=== PATIENT | female | born 1985 | race Caucasian/White ===

== ENCOUNTER 2017-10-05 10:10 | Day surgery (SDC) | payer BC ==
--- NOTE | 2017-10-05 01:17 | HP ---
CC: Dr. Guillermo Ramon * ADMITTING HISTORY AND PHYSICAL: DATE OF ADMISSION: 10/06/17 ADMITTING DIAGNOSES: 1. Calculus, right proximal ureter. 2. Right hydronephrosis. PLANNED PROCEDURE: Right ureteroscopy, possible laser and stent insertion ( possibly to be followed by shockwave lithotripsy in the near future). SURGEON: Franco Terrell MD HISTORY OF PRESENT ILLNESS: Jimena Wayne is a 32-year-old lady who had initially been evaluated at the emergency room at [facility] for right flank pain. A CT scan had revealed 8 mm calculus in the right proximal ureter with mild right hydronephrosis. I discussed options of management with her including signs to continue conservative management because of the size and proximal location of the calculus. She is now being brought in for right ureteroscopy, possible laser and stent insertion. Because of the proximal location of the calculus, I have explained to her that the calculus may migrate into the kidney and she may require shockwave lithotripsy at a later date. PAST MEDICAL HISTORY: Significant for: 1. Hyperkalemia (no definite diagnosis, currently being worked up by mammography technician). 2. History of kidney stones. PAST SURGICAL HISTORY: Significant for: 1. x2. 2. Laparoscopy. MEDICATIONS: On admission: 1. Hydrochlorothiazide 50 mg daily. 2. Flomax 0.4 mg. 3. Ibuprofen p.r.n. ALLERGIES: No known drug allergies. FAMILY HISTORY: There is a strong family history of kidney stones in the form of her father, mother and brother. SMOKING HISTORY: She is a nonsmoker. REVIEW OF SYSTEMS: She is otherwise in excellent health. There is no history of diabetes mellitus or any other major systemic illness. PHYSICAL EXAMINATION GENERAL: Reveals a pleasant mildly uncomfortable young lady. VITAL SIGNS: Blood pressure is 136/84, pulse 104 per minute and regular, temperature 96.4, oxygen saturation 98% on room air. LUNGS: Clear bilaterally. CARDIOVASCULAR EXAM: Regular rate and rhythm. S1, S2. ABDOMEN: Soft with mild right flank tenderness. IMPRESSION: A 32-year-old lady with a partially obstructing calculus in the right proximal ureter. PLAN: Plan is for right ureteroscopy, possible laser and stent insertion. [id number]/[facility] #: [id number] [facility]
[2017-10-05] MEDS ORDERED: cefTRIAXone(*) 2 GM ADDV.VIAL IVPB ONE (10:18)
[2017-10-05] MEDS ORDERED: Gentamicin ADULT (*) 160 MG in NS 0.9% 100 ML* 100 ML IVPB ONE (10:30)
[2017-10-05 11:19] LABS: EGFR Non-African American 80.8 (>60)
[2017-10-05] MEDS ORDERED: Iohexol 180 (CONTRAST) 10 ML SDV IV ONE (12:09)
[2017-10-05] MEDS ORDERED: fentaNYL* 50 MCG/ML 2 ML VIAL (100 MCG VIAL) ONE (12:19)
[2017-10-05] MEDS ORDERED: Midazolam* 1 MG/ML 2 ML VIAL (2 MG) ONE (12:19)
[2017-10-05] MEDS ORDERED: Chloroprocaine 2%* 20 ML VIAL ONE (12:20)
[2017-10-05] MEDS ORDERED: Metoclopramide IV* 5 MG/ML 2 ML VIAL ONE (12:20)
[2017-10-05] MEDS ORDERED: Sodium Citrate/Citric Acid* 15 ML UDC ONE (12:24)
--- NOTE | 2017-10-05 14:09 | RAD ---
INDICATION: Right ureteroscopy COMPARISON: None FINDINGS: 6 seconds of fluoroscopy were provided for the urology department. Fluoroscopic spot imaging of the abdomen were obtained for operative control and show right ureteroscopy with stent placement . CPT II Codes: G9500 (fluoro time doc)
[2017-10-05 15:12] VITALS: BP 128/83
--- NOTE | 2017-10-05 15:34 | RAD ---
HISTORY: Post stent insertion COMPARISONS: October 04, 2017 VIEWS: Frontal views of the abdomen. FINDINGS: BOWEL: There is a nonobstructive bowel gas pattern. CALCULI: There is a 0.5 cm calculus overlying the right renal parenchymal shadow, stable. A right ureteral stent is noted. BONES AND SOFT TISSUES: There are no osseous abnormalities. OTHER FINDINGS: The lung bases are clear. There is no subphrenic gas. IMPRESSION: STABLE RIGHT NEPHROLITHIASIS. RIGHT URETERAL STENT.
--- NOTE | 2017-10-06 16:09 | OP ---
DATE OF OPERATION: 10/05/17 - [facility] DATE OF : 85 SURGEON: Franco Terrell MD ANESTHESIOLOGIST: Dr. Cho. ANESTHESIA: Spinal. PRE-OP DIAGNOSES: 1. Right hydronephrosis. 2. Obstructing calculus, right proximal ureter. POST-OP DIAGNOSES: 1. Right hydronephrosis. 2. Obstructing calculus, right proximal ureter. OPERATIVE PROCEDURE: Cystoscopy, right retrograde pyelogram, right ureteroscopy and right ureteral calculus manipulation, and right stent insertion. COMPLICATIONS: None. INDICATIONS: Jimena Wayne is a 32-year-old lady who has had right flank pain and nausea secondary to a calculus that was initially noted on a CT scan done at [facility]. This was measured as a 8 mm calculus in the proximal right ureter. She is being brought in for right stent insertion and because of the proximal location of the calculus will likely require lithotripsy in the near future. OPERATIVE FINDINGS: Obstructing calculus, right proximal ureter with fairly narrow ureter and right hydronephrosis. POSTOPERATIVE CONDITION: Stable. STENTS USED: 6-Samoan stent, right ureter. DESCRIPTION OF PROCEDURE: After induction of spinal anesthesia, the patient was placed in dorsal lithotomy position, sequential compression devices were in place and functioning. Initial cystoscopy revealed normally located right and left ureteral orifices with clear efflux noted from the left orifice. There was not much efflux noted from the right orifice suggesting that her obstruction had worsened since she had been evaluated in the office yesterday. A guidewire was introduced into the right ureter. Retrograde pyelogram revealed right hydronephrosis. A 6-Samoan semi-rigid ureteroscope was introduced and advanced into the distal right ureter. The ureter was clearly narrow and the ureteroscope was advanced 4 to 5 cm but because of how narrow the ureter was and the fact that the calculus was fairly proximal close to the ureteropelvic junction, I did not think it would be feasible to reach the calculus without causing any trauma to the ureter. At this point, I elected to manipulate the calculus proximally with an open-ended catheter and once this was done, a 6-Samoan stent was introduced and positioned under fluoroscopy with good proximal and distal positioning obtained. The bladder was emptied. The patient tolerated the procedure satisfactorily and was transferred back to recovery area in stable condition. [id number]/[facility] #: [id number] [facility]
== END 2017-10-05 15:16 | disposition home or self-care (01) ==
LOC: OR 10:10
PROVIDERS: ATTEND Urology
DX: N13.2 Hydronephrosis with renal and ureteral calculous obstruction (principal); E87.5 Hyperkalemia; Z87.442 Personal history of urinary calculi
CPT/HCPCS: 36415; 74018; 74420; 80048; A9270-GY; C1876; J0696; J1580; J2250; J2400; J2765; J3010

== ENCOUNTER 2017-10-23 06:03 | Day surgery (SDC) | payer BC ==
[~2017-10-23 06:03] MED LIST: Buffered Lidocaine 0.9% SYRIN* 5 ML/SYR SYRINGE INTRADERM ONE
[2017-10-23] MEDS ORDERED: cefTRIAXone(*) 2 GM ADDV.VIAL IVPB ONE (06:12)
[2017-10-23] MEDS ORDERED: Midazolam* 1 MG/ML 2 ML VIAL (2 MG) ONE (07:07)
[2017-10-23] MEDS ORDERED: fentaNYL* 50 MCG/ML 2 ML VIAL (100 MCG VIAL) ONE (07:07)
[2017-10-23] MEDS ORDERED: PROCHLORPERAZINE INJ 5 MG/ML 2 ML VIAL IV PRN (07:49)
[2017-10-23] MEDS ORDERED: Acetaminophen TAB* 325 MG PO PRN (07:49)
[2017-10-23] MEDS ORDERED: Ondansetron ODT TAB* 4 MG PO PRN (07:49)
[2017-10-23] MEDS ORDERED: Naloxone* 0.4 MG/ML 1 ML VIAL IV PRN (07:49)
[2017-10-23] MEDS ORDERED: DiMENhydriNATE IV* 50 MG/ML VIAL IV PUSH PRN (07:49)
[2017-10-23] MEDS ORDERED: fentaNYL* 50 MCG/ML 2 ML VIAL (100 MCG VIAL) IV PRN (07:49)
[2017-10-23] MEDS ORDERED: HYDROcodone/ACETAMIN 5-325 MG* 1 TAB PO PRN (07:49)
[2017-10-23] MEDS ORDERED: Propofol* 10 MG/ML 20 ML BTL IV PUSH ONE (07:51)
[2017-10-23] MEDS ORDERED: Dexamethasone IV* 4 MG/ML 1 ML (4 MG) ONE (07:51)
[2017-10-23] MEDS ORDERED: Famotidine IV* 10 MG/ML 2 ML (20 mg) ONE (07:51)
--- NOTE | 2017-10-23 08:23 | RAD ---
Indication: Shock wave lithotripsy. [employer] film of the abdomen demonstrates right ureteral stent in place. There is stool in the right colon. No dilated loops of bowel are noted. Bowel gas pattern is unremarkable. Calcification is noted overlying the right L3 transverse process. IMPRESSION: The calculus is now overlying the right L3 transverse process is relatively in the right ureter.
[2017-10-23 09:27] VITALS: BP 104/74
--- NOTE | 2017-10-23 23:10 | OP ---
DATE OF OPERATION: 10/23/17 - [facility] DATE OF : 85 SURGEON: Franco Terrell MD ANESTHESIOLOGIST: Gary Ly MD ANESTHESIA: General. PRE-OP DIAGNOSIS: Right ureteral-renal calculus. POST-OP DIAGNOSIS: Calculus, right ureter. OPERATIVE PROCEDURE: Shock wave lithotripsy of calculus, right ureter. INDICATIONS: Jimena Wayne is a 32-year-old lady who had been evaluated for an obstructing calculus of the right proximal ureter. She had undergone right stent insertion with manipulation of the calculus proximally and is now being brought in for lithotripsy. COMPLICATIONS: None. POSTOPERATIVE CONDITION: Stable. DESCRIPTION OF PROCEDURE: After induction of general anesthesia, the patient was placed on the lithotripsy table in the supine position. The calculus which had been manipulated into the kidney was now back in the proximal right ureter adjacent to the stent. After adequate localization, shock wave lithotripsy was commenced at a rate of 60 shocks per minute. Periodic imaging revealed good localization and a total of 1800 shocks were delivered. The patient tolerated the procedure satisfactorily and was transferred back to the recovery area in stable condition. [id number]/[facility] #: [id number] MTDD
== END 2017-10-23 09:38 | disposition home or self-care (01) ==
LOC: OR 06:03
PROVIDERS: ATTEND Urology
DX: N20.1 Calculus of ureter (principal); N13.30 Unspecified hydronephrosis
CPT/HCPCS: 36415; 74018; 81025; 84132; J0696; J1100; J2250; J2704; J3010

== ENCOUNTER 2018-01-09 15:09 | Observation (INO) | payer BC ==
--- NOTE | 2018-01-09 12:53 | HP ---
CC: Dr. Guillermo Ramon, [facility] DATE OF ADMISSION: 01/09/2018. AGE: 32-year-old female. ADMITTING DIAGNOSIS: Obstructing calculus right ureter. PLANNED PROCEDURE: Right stent insertion, possible right ureteroscopy (likely to be followed in the near future by lithotripsy. SURGEON: Dr. Terrell. HISTORY OF PRESENT ILLNESS: Jimena Wayne is a 32-year-old lady who has had a history of right renal calculi. She has previously undergone right stent insertion and lithotripsy in October of 2017 with only partial fragmentation of observed. At that time, she had an 8 mm calculus. My plan was to consider bringing her back in for repeat lithotripsy at some point which had been put off because she had a recent right ankle sprain. She started having severe right flank pain on January 06. An ultrasound done in my office earlier today reveals a 6 mm obstructing calculus in the proximal right ureter with evidence of perinephric stranding and absent right ureteral jets suggesting a complete obstruction. She is now being brought in for urgent right stent insertion, possible ureteroscopy and will likely require lithotripsy in the near future. PAST MEDICAL HISTORY: 1. Renal calculi. 2. Hypertension. MEDICATIONS ON ADMISSION: 1. Hydrochlorothiazide 50 mg a day. 2. Ibuprofen prn. ALLERGIES: No known drug allergies. FAMILY HISTORY: There is a strong family history of kidney stones in the form of mother and several siblings. REVIEW OF SYSTEMS: There is no history of diabetes mellitus or any other major systemic illness. She did have a recent right ankle sprain and is still in a walking boot. This did not require any surgery. PHYSICAL EXAMINATION GENERAL: Pleasant, healthy-appearing young lady. VITAL SIGNS: Blood pressure 140/90, pulse 68 per minute and regular, temperature 96.3, oxygen saturation 98 percent on room air. CARDIOVASCULAR: Regular rate and rhythm. S1, S2. LUNGS: Clear bilaterally. ABDOMEN: Soft with mild right flank tenderness. In the right lower extremity she had a walking boot. PLAN: I reviewed the ultrasound and had a detailed discussion with Jimena. The plan is for urgent right stent insertion, possible ureteroscopy (likely to be followed by lithotripsy in the near future). [id number]/[facility] #: [id number] [facility]
[2018-01-09] MEDS ORDERED: cefTRIAXone(*) 2 GM ADDV.VIAL IVPB ONE (15:51)
[2018-01-09] MEDS ORDERED: Gentamicin ADULT (*) 160 MG in NS 0.9% 100 ML* 100 ML IVPB ONE (16:00)
[2018-01-09] MEDS ORDERED: Iohexol 180 (CONTRAST) 10 ML SDV IV ONE (16:50)
[2018-01-09] MEDS ORDERED: Famotidine IV* 10 MG/ML 2 ML (20 mg) IV ONE (17:05)
[2018-01-09] MEDS ORDERED: Dexamethasone IV* 4 MG/ML 1 ML (4 MG) IV SLOW PU ONE (17:05)
[2018-01-09] MEDS ORDERED: Sodium Citrate/Citric Acid* 15 ML UDC PO ONE (17:06)
[2018-01-09] MEDS ORDERED: fentaNYL* 50 MCG/ML 2 ML VIAL (100 MCG VIAL) ONE (17:11)
[2018-01-09] MEDS ORDERED: Midazolam* 1 MG/ML 2 ML VIAL (2 MG) ONE (17:11)
[2018-01-09] MEDS ORDERED: Dexamethasone IV* 4 MG/ML 1 ML (4 MG) ONE (17:12)
[2018-01-09] MEDS ORDERED: Famotidine IV* 10 MG/ML 2 ML (20 mg) ONE (17:12)
[2018-01-09] MEDS ORDERED: Propofol* 10 MG/ML 20 ML BTL IV PUSH ONE (17:51)
[2018-01-09] MEDS ORDERED: Ondansetron INJ* 2 MG/ML VIAL ONE (17:51)
[2018-01-09] MEDS ORDERED: Naloxone* 0.4 MG/ML 1 ML VIAL IV PRN (18:11)
[2018-01-09] MEDS ORDERED: fentaNYL* 50 MCG/ML 2 ML VIAL (100 MCG VIAL) IV PRN (18:11)
[2018-01-09] MEDS ORDERED: DiMENhydriNATE IV* 50 MG/ML VIAL IV PUSH PRN (18:11)
[2018-01-09] MEDS ORDERED: LORazepam INJ* 2 MG/ML 1 ML VIAL IV PUSH ONE (19:28)
[2018-01-09] MEDS ORDERED: NS 0.9% 1000 ML* 1,000 ML IV SCH (19:45)
[2018-01-09] MEDS ORDERED: Acetaminophen TAB* 325 MG PO PRN (19:46)
[2018-01-09 21:35] LABS: ABS Basophils 0 10^3/ul (0-0.2); ABS Eosinophils 0 10^3/ul (0-0.6); ABS Lymphocytes 0.8 10^3/ul (1.0-4.8); ABS Monocytes 0.2 10^3/ul (0-0.8); ABS Neutrophils 8.7 10^3/ul (1.5-7.7); ABS Nucleated RBC 0 10^3/ul; Eosinophil % 0.1 % (0-6); Hematocrit 39 % (35-47); Hemoglobin 13.1 g/dl (12.0-16.0); Lymphocyte % 7.8 % (25-47); Mean Corpuscular HGB Conc 34 g/dl (31-36); Mean Corpuscular Hemoglobin 30 pg (27-31); Mean Corpuscular Volume 88 fL (80-97); Mean Platelet Volume 7.4 um3 (7.4-10.4); Nucleated Red Blood Cells % 0; Platelet Count 280 10^3/ul (150-450); Red Blood Count 4.39 10^6/ul (4.00-5.40); Red Cell Distribution Width 14 % (10.5-15); White Blood Count 9.6 10^3/ul (3.5-10.8)
[2018-01-09 21:37] LABS: Urine Appearance Clear; Urine Blood 3+ (Negative); Urine Color Straw; Urine Ketones Negative (Negative); Urine Protein 1+(30 mg/dL) (Negative); Urine Red Blood Cell 2+(6-10/hpf) (Absent); Urine Specific Gravity 1.002 (1.010-1.030); Urine Urobilinogen Negative (Negative); Urine White Blood Cell Trace(0-5/hpf) (Absent)
[2018-01-09 21:52] LABS: EGFR Non-African American 83.1 (>60)
[2018-01-09] MEDS ORDERED: Potassium Chlor TAB* 20 MEQ TAB.ER PO ONE (22:01)
--- NOTE | 2018-01-09 22:16 | HP ---
CC: Dr. Ramon; Dr. Cho * HISTORY AND PHYSICAL: DATE OF ADMISSION: 01/09/18. PRIMARY CARE PROVIDER: Dr. Ramon. ATTENDING PHYSICIAN WHILE IN THE HOSPITAL: Isaak Sandoval M.D.* (report dictated by Shelly Bonilla NP). REQUESTING PHYSICIAN FOR ADMISSION: Dr. Cho. CONSULTING UROLOGIST: Dr. Terrell. CHIEF COMPLAINT: 1. Obstructing nephrolithiasis. 2. Rigidity. HISTORY OF PRESENT ILLNESS: I am referring Dr. Terrell's H and P dictated earlier today for details of chart. Mrs. Wayne is a 32-year-old female patient. She has a history of renal calculi , history of hypertension, and a history of hyperkalemia. She carries a history of kidney stones. She had undergone right stent insertion and lithotripsy in October 2017. She started having pain in the right side of her flank on 01/06/18. Ultrasound was done in the office today which showed a 6-mm obstructing stone in the right ureter with evidence of perinephric stranding and absence of right ureteral jets. The patient was taken urgently to the OR today, underwent procedure, and did tolerate the procedure well. Unfortunately postprocedure, the patient started developing in the PACU, episodes of rigidity and tetany. She was having issues with her jaw clenching down. She was coherent on this episode. She has had about 4 episodes, longest one lasting 10 minutes. She did not receive any Reglan and she did not receive any Compazine, but she did receive fentanyl, propofol, Versed, and sevoflurane. She received general anesthetic previously with no complication, but because of these episodes, we were asked to evaluate. She has not had any bowel or bladder incontinence associated with this and no loss of consciousness. She is able to make an eye contact, follow commands during this, and she is able to order the word "yes or no," but she cannot speak a full sentence because her jaw is clenched. Because of these episodes, we were asked to evaluate in consult. PAST MEDICAL HISTORY: Significant for: 1. Hypertension. 2. Nephrolithiasis. 3. Hyperkalemia. PAST SURGICAL HISTORY: 1. She has had . 2. Exploratory laparotomy. 3. Multiple ureteral stentings. 4. She has had a laparoscopic surgery for an ovarian cyst. MEDICATIONS: Home meds include: 1. Ibuprofen 800 mg every 8 hours as needed. 2. Hydrochlorothiazide 50 mg p.o. daily. ALLERGIES: Her allergies to medications include LATEX and no known drug allergies. FAMILY HISTORY: She said it is of her knowledge, her mom and dad are previously healthy. There was no reports of medical problems with them. SOCIAL HISTORY: She does not smoke. She does not drink. She denied recreational drugs. Her surrogate decision maker is her . REVIEW OF SYSTEMS: Again, she denied any recent fevers. No fevers, no chills, no shortness of breath. She denied any dysuria. No frequency. No seizure. No loss of consciousness with this episode. There is no abdominal pain. No chest pain. No shortness of breath. No ear discharge. No rhinorrhea or any sore throat. Review of 14 systems was completed, all others negative. PHYSICAL EXAMINATION GENERAL: At this time, Ms. Wayne is a 32-year-old female patient. She is sitting in the PACU bed. She did not appear to be in any acute distress. VITAL SIGNS: Blood pressure 120/95, pulse 94, respirations were 18, O2 sat 100% , temperature 97.7. HEENT: Head: Atraumatic. Eyes: EOMs are intact. Sclerae anicteric and not pale. Throat: Oral mucosa appears moist. No oropharyngeal erythema. NECK: Supple. LUNGS: Clear to auscultation bilaterally. No wheezes, rales or rhonchi. HEART: Heart sounds S1, S2. She had a regular rate and rhythm. No murmurs, rubs or gallops. ABDOMEN: Soft, flat, nontender. Her bowel sounds were present. EXTREMITIES: Pulses were 2+ throughout. She is moving all 4 extremities. NEUROLOGIC: When she was not on one of these episodes, she is awake, alert. She is oriented x3. Her speech is clear. Her tongue is midline. She had no gross focal deficits. When she does have the episode, she becomes rigid in her entire body. Her jaw is clenching. She can maintain eye contact, and if you ask her to look at you, she will and she can answer "yes or no" to questions, but she cannot speak a full sentence. SKIN: Intact. DIAGNOSTIC STUDIES/LAB DATA: I have chemistries from 10/05/17. CMP: Sodium of 136, potassium is 3.5, chloride of 103, bicarb 22, BUN 19, creatinine 0.82. She again had an outpatient ultrasound and report according to Dr. Terrell showed 6 mm obstructing calculus in the proximal right ureter with evidence of perinephric stranding and absent right ureteral jets. Old medical records were reviewed. ASSESSMENT AND PLAN: Mrs. Wayne is a 32-year-old female patient with a known history of kidney stones coming into our hospital today with Dr. Terrell for right ureteral stent. Postoperatively, he noted to have episodes of tetany, we were asked to evaluate. She will be admitted under observation status for: 1. Status post right ureteral stent with perinephric stranding on imaging from Dr. Terrell's read, I will place her empirically on Rocephin with some blood cultures, and I have also sent some blood cultures including lactic as well and we will continue to follow. 2. Episodes of tetany: These episodes she is having where she is rigid, they almost look like she is having extrapyramidal side effects and possible tardive dyskinesia. I did touch base quickly with Neurology, felt it to be reaction to the patient's anesthetics. So, I will certainly go ahead and give her some Ativan, which I have done now. She has tolerated it well. I will hydrate her. I will check a CMP and CBC. If they continue to happen, I will get a formal consult from Neurology, possible CT imaging of her brain, possible EEG. We are going to wait as she seems to be stable currently, she has not had any more episodes since the Ativan. 3. Hypertension. Continue meds as prescribed. 4. Renal calculi. We will follow with her urologist. 5. Hyperkalemia. Continue with her current medical regimen. We are checking her CMP now. 6. Code status is full code. 7. DVT prophylaxis. She will be placed on SCDs. 8. Fluids, electrolytes, and nutrition. Clear liquid diet, going to regular diet. TIME SPENT: Time spent on the consult was 60 minutes, greater than half the time was spent [id number] with the patient obtaining my history and physical, other half time was spent going over the plan of care with the patient and implementing the plan of care. I did discuss the plan of care with my attending, Dr. Sandoval; he is in agreement. SHELLY BONILLA NP [id number]/[facility] #: [id number] [facility]
--- NOTE | 2018-01-09 22:29 | RAD ---
CPT II Codes: G9500 INDICATION: Right-sided hydronephrosis TECHNIQUE: Intraoperative fluoroscopy was provided during retrograde pyelography and right ureteral stent placement. FINDINGS: 9 spot films depict retrograde pyelogram demonstrating moderate right-sided hydronephrosis followed by anatomic deployment of a right ureteral stent. Fluoroscopy time: 10 seconds IMPRESSION: As above.
--- NOTE | 2018-01-09 22:59 | RAD ---
INDICATION: Status post right ureteral stent placement COMPARISON: Preoperative KUB dated December 22, 2017 TECHNIQUE: Single AP view of the abdomen was obtained.. FINDINGS: There has been interval placement of a right-sided ureteral stent. IMPRESSION:ANATOMIC ALIGNMENT OF RIGHT URETERAL STENT IN THE AP VIEW.
--- NOTE | 2018-01-10 00:39 | OP ---
CC: Dr. Guillermo Ramon, [facility] * DATE OF OPERATION: 01/09/18 - ROOM #ICU-02 DATE OF : 85 SURGEON: Franco Terrell MD ANESTHESIOLOGIST: Dr. Cho. ANESTHESIA: General. PRE-OP DIAGNOSIS: 1. Right hydronephrosis. 2. Obstructing calculus right proximal ureter. OPERATIVE PROCEDURE: Cystoscopy, right retrograde pyelogram, right ureteroscopy , ewelina lithotripsy of right proximal ureteral calculus, right pyeloscopy and right stent insertion. COMPLICATIONS: None. STENT USED: 8-Portuguese stent right ureter. INDICATIONS: Jimena Wayne is a 32-year-old lady who was evaluated earlier today and noted to have a complete obstruction of the right ureter secondary to a calculus in the proximal right ureter. OPERATIVE FINDINGS: Obstructing calculus about 7 mm calculus in the right proximal ureter with edema and inflammation secondary to impaction of the calculus. DESCRIPTION OF PROCEDURE: After induction of general anesthesia, the patient was placed in dorsal lithotomy position. Sequential compression devices were in place and functioning. Initial cystoscopy revealed a normal appearing bladder. Clear efflux was noted from the left orifice. There was no efflux noted from the right orifice suggesting a complete obstruction. A guidewire was introduced and advanced into the proximal right collecting system after some initial obstruction noted at the level of proximal ureter was overcome. Retrograde pyelogram revealed fullness of the right collecting system. A 6- Portuguese semi-rigid ureteroscope was carefully introduced and advanced under direct vision. The entire ureter was fairly narrow and the ureteroscope was carefully advanced to the level of the proximal ureter where a 7 mm calculus was noted to be impacted. Using a 550 micron Holmium laser, the stone was successfully broken up into multiple fragments. Next using a three- pronged grasper all of the fragments were removed and sent for analysis. The ureteroscope was carefully advanced beyond the proximal ureter into the renal pelvis, which was dilated, but I did not visualize any sizeable fragments within the kidney. An 8-Portuguese stent was introduced and positioned under fluoroscopy with good proximal and distal positioning obtained because the stone had been impacted in the proximal ureter, my plan is to leave the stent in for little bit longer to reduce the chances of postoperative stricture. The bladder was emptied, the patient tolerated the procedure satisfactorily and was transferred back to the recovery area in stable condition. [id number]/[facility] #: [id number] MTDD
[2018-01-10 05:57] LABS: ABS Basophils 0 10^3/ul (0-0.2); ABS Eosinophils 0 10^3/ul (0-0.6); ABS Monocytes 0.3 10^3/ul (0-0.8); ABS Neutrophils 9.8 10^3/ul (1.5-7.7); ABS Nucleated RBC 0 10^3/ul; Eosinophil % 0 % (0-6); Hematocrit 39 % (35-47); Hemoglobin 13.1 g/dl (12.0-16.0); Lymphocyte % 8.8 % (25-47); Mean Corpuscular HGB Conc 34 g/dl (31-36); Mean Corpuscular Hemoglobin 30 pg (27-31); Mean Corpuscular Volume 89 fL (80-97); Mean Platelet Volume 7.1 um3 (7.4-10.4); Nucleated Red Blood Cells % 0; Platelet Count 296 10^3/ul (150-450); Red Blood Count 4.38 10^6/ul (4.00-5.40); Red Cell Distribution Width 14 % (10.5-15); White Blood Count 11.1 10^3/ul (3.5-10.8)
[2018-01-10 06:15] LABS: EGFR Non-African American 93.9 (>60)
[2018-01-10] MEDS ORDERED: Hydrochlorothiazide TAB* 25 MG PO SCH (09:00)
[2018-01-10 12:27] VITALS: BP 110/84
--- NOTE | 2018-01-10 15:20 | DS ---
CC: Dr. Isaak Sandoval; Dr. Terrell; Dr. Cho; Dr. Guillermo Ramon; Dr. An * DISCHARGE SUMMARY: DATE OF ADMISSION: 01/09/18 DATE OF DISCHARGE: 01/10/18 ATTENDING FOR THIS ADMISSION: Dr. Isaak Sandoval. SPECIALISTS INVOLVED IN THIS PATIENT'S CARE: Dr. Terrell of Urology and Dr. Cho from Anesthesia. PRIMARY CARE PROVIDER: Dr. Guillermo Ramon in [place], [place]. MY ATTENDING FOR TODAY: Dr. Madelin An.* (DICTATED BY FIOR WELCH NP) HOSPITAL COURSE: This is a very pleasant 32-year-old female patient that we were asked to admit by Anesthesia. Postoperatively, patient had undergone a cystoscopy, lithotripsy, and right ureteral stent placement with Dr. Terrell. She had an uneventful surgery; however, postoperatively, she began experiencing muscle contractures including trismus and inability to control the muscles in her hands and also in her legs. She became very rigid. At that point, when her jaw was clenched and she was unable to express any range of motion. Anesthesia had given her some Ativan thinking patient was having a dystonic reaction; however, she did not receive any Reglan and it was unclear whether this was a reaction to anesthesia versus some other metabolic disturbance. She did not receive any Compazine or Reglan, but she did receive fentanyl, propofol , Versed, and sevoflurane for general anesthetic agents. None of which in particular would cause this type of reaction, so it was unclear as to why patient was continuing to have these episodes postoperatively. She was held in observation in the ICU. She had fluid resuscitation, laboratory work, and her symptoms resolved spontaneously. Upon evaluating the patient this morning, she has had no further episodes of this rigidity since last night, she is feeling well this morning, she is ambulatory. She is urinating just fine. She denies any fever, fatigue, or chills. She has a mild headache with some neck pain; however, she states this is quite common for her. She denies any chest pain. No shortness of breath, no abdominal pain, no nausea, no vomiting, no diarrhea, no constipation, no further rigidity or contractures of muscles, no myalgias or arthralgias, and no further constitutional complaints. PHYSICAL EXAMINATION: Today, reveals a well-appearing female at her stated age. Vital signs are currently blood pressure 113/65, heart rate 80, respiratory rate between 18 and 20, O2 saturation 96% to 98% on room air, with a temperature of 97.8. HEENT: The patient is atraumatic, normocephalic. PERRLA with nonicteric sclerae. Oral mucosa is moist. Tongue is midline. Neck : Supple. Nontender. No JVD noted. No carotid bruits auscultated. Cardiovascular: S1, S2 present. No murmurs, gallops, or rubs noted. Lungs are clear bilaterally to auscultation with no wheezing, rhonchi, or rales. Abdomen : Soft, nontender, nondistended. Positive bowel sounds in all 4 quadrants. was deferred. Musculoskeletal: There is no clubbing, no cyanosis, and no edema. Calves are soft, nontender. No muscle rigidity. No trismus or contractures noted. She has full range of motion, steady gait. +2 distal pulses palpable. Neurologic: There are no focalities. Cranial nerves are intact. She is alert and oriented x4. Psychiatric: She is cooperative and appropriate. LABORATORY DATA: WBCs 11.1, RBCs 4.38, hemoglobin 13.1, hematocrit 39, platelets 296. Sodium 139, potassium 3.7, chloride 104, CO2 of 27, BUN 9, creatinine 0.72, GFR 93.9, glucose 128. Lactic acid initially 2.1, today it is 1.6. Calcium 8.4. TSH 0.76, globulin 2.7. Albumin 3.8, protein 6.5, alk phos 55, ALT 22, AST 19, bilirubin 0.40. Magnesium 2.0. Urinalysis shows 1+ protein , 3+ blood, no nitrites, trace leukocyte esterase, 1+ bacteria. DISCHARGE DIAGNOSES: 1. Nephrolithiasis, status post lithotripsy and right ureteral stent. 2. History of hypertension. 3. History of hyperkalemia. 4. Lactic acidosis. 5. Hypocalcemia. 6. Tetany, likely secondary to lactic acidosis and shifting calcium levels. MEDICATIONS FOR DISCHARGE: Include: 1. Acetaminophen 650 mg q.4 hours as needed. 2. Hydrochlorothiazide 50 mg in the morning. DISPOSITION: I had a lengthy discussion with the patient regarding the cause of her tetany. Per Anesthesia, the initial concern was that the patient was having reaction to anesthesia; however, after evaluating her labs, I think it is more likely that the patient had a metabolic acidosis with a drop in her calcium during her lithotripsy if she had calcium-based stones. I think, avoiding the stones may have given her some electrolyte imbalances. She does have hyperkalemia normally as well and she also received lactated Ringer's. So , I think between the lactate, the lactic acidosis, and the shifting calcium is likely that caused her tetany. I explained to the patient that I would recommend if she is going to have surgery again in the future to stay away from lactated Ringer's and explained this is to the anesthesia team and use normal saline only for volume expansion. Also, I had a discussion with the patient about obtaining the records from Anesthesia during her . She said she did have an unknown reaction at that time as well. Those records should be compared to the medications she received this time in the event that there was a general anesthesia reaction as well. At this point, however, though I believe this is metabolic in nature. The patient will be discharged to home. She is in stable condition. All questions were answered. The patient is stating she will take Tylenol, she does not require antibiotics at this time, she received antibiotics intraoperatively and postoperatively. She should follow up with Dr. Terrell in the next 1 to 2 weeks, which will be arranged through his office and also her primary care provider, Dr. Guillermo Ramon, also in the next 1 to 2 weeks. She may need to have electrolytes checked at that time and go for some blood work. The patient was discharged in stable condition. The patient stated her understanding of the discharge instructions, medications, and followup. FIOR WELCH, CORRINE [id number]/[facility] #: [id number]
[2018-01-10] MEDS ORDERED: cefTRIAXone(*) 1 GM in NS 0.9% 50 ML* 50 ML IVPB SCH (17:00)
== END 2018-01-10 12:30 | disposition home or self-care (01) ==
LOC: OR 15:09 → ICU 20:31
PROVIDERS: ADMIT Nurse Practitioner Family; ATTEND Hospitalist
PROC: 0T768DZ Dilation of Right Ureter with Intraluminal Device, Via Natural or Artificial Opening Endoscopic (ICD-10-PCS; 2018-01-09)
PROC: 0TC68ZZ Extirpation of Matter from Right Ureter, Via Natural or Artificial Opening Endoscopic (ICD-10-PCS; 2018-01-09)
PROC: BT1DZZZ Fluoroscopy of Right Kidney, Ureter and Bladder (ICD-10-PCS; 2018-01-09)
PROC: 0WHR8YZ Insertion of Other Device into Genitourinary Tract, Via Natural or Artificial Opening Endoscopic (ICD-10-PCS; 2018-01-09)
PROC: 0TF68ZZ Fragmentation in Right Ureter, Via Natural or Artificial Opening Endoscopic (ICD-10-PCS; principal; 2018-01-09 17:00)
DX: N13.2 Hydronephrosis with renal and ureteral calculous obstruction (principal); E89.2 Postprocedural hypoparathyroidism; Y83.8 Other surgical procedures as the cause of abnormal reaction of the patient, or of later complication, without mention of misadventure at the time of the procedure; R25.2 Cramp and spasm; I10 Essential (primary) hypertension; E87.2 Acidosis; E83.51 Hypocalcemia; E87.5 Hyperkalemia; Z79.899 Other long term (current) drug therapy
CPT/HCPCS: 36415; 74018; 74420; 80048; 80053; 81003; 81015; 82365; 83605; 83735; 84443; 85025; 87040; 87086; 87641; 88300; A9270-GY; G0378; J0696; J1100; J1580; J2060; J2250; J2405; J2704; J3010